=== PATIENT | female | born 1970 | race Caucasian/White ===

== ENCOUNTER → 2018-03-08 | Day surgery (SDC) | payer OTHER ==
[~2018-03-08] VITALS: Ht 162.6 cm; Wt 113.4 kg
--- NOTE | 2018-03-08 12:12 | Operative Report ---
Operative/Inv Procedure Report Surgery Date: 03/08/18 Name of Procedure: 1) Right Knee Arthroscopy with Partial Medial Meniscectomy. 2) Chondroplasty and Microfracture of femoral condyle right knee. 3) Chondroplasty Patella Articular Cartilage. patella articular cartilage. Pre-Operative Diagnosis: 1) Torn Medial Meniscus Right Knee. 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 Post-Operative Diagnosis: Same. Estimated Blood Loss: scant Surgeon/Commercial Energy Auditor: Vikash Farrell MD Anesthesia: laryngeal mask airway Monitors: EKG/BP/oxygen saturation. IV Fluids: Lactated Ringer's. Implants: None. Urine Output: None. Drains: None. Specimens: None. Microbiology: None. Tourniquet: 37 minutes at 350 mmHg. Complications: None known. Condition: Stable. Operative Indication: The patient is a 47-year-old female who started to develop right medial knee pain with snapping and popping but no true catching or locking around early to mid December, without history of injury or change in activity pattern. X-rays were relatively benign. Initial impression was that of early articular cartilage derangement or medial meniscal cartilage derangement medial tibiofemoral compartment. Initial management was conservative with knee bracing and with ice and heat treatment modalities and with physical therapy and home exercises and NSAIDs. The patient's symptoms continued and in fact changed in that she started to develop more true mechanical type symptoms of catching in the knee. She felt that her knee symptoms are worsening over time. She was having increasing difficulty with walking and with inability to terminally extend her knee. We did eventually decide to get an MRI of the knee. She followed up after MRI which showed a complex tear involving the posterior horn and body of the medial meniscus as well as some high-grade chondral fissuring and cartilage loss involving the weightbearing surface of the medial femoral condyle. With ongoing symptoms that were worsening we did discuss the risks and benefits and expected outcomes of continued attempts at nonoperative management which were felt to be unacceptable to the patient. We did alternatively discuss the same with respect to surgical intervention including a right knee arthroscopy and partial medial meniscectomy. We did discuss evaluation of the articular cartilage with possible chondroplasty and possible microfracture of the medial femoral condyle. All of the patient's questions were answered at length. She did wish to move forward with surgery and surgical consent was obtained. Operative/Procedure Note Note: The patient was brought to the operating room and placed on the operating table in supine position. General anesthesia via LMA was induced by the anesthesiologist. A dose of IV antibiotics were given for infection prophylaxis. All bony prominences were well-padded. The contralateral left lower extremity was placed into a calf compression sleeve to hopefully cut down on risk of lower extremity venous pulling and blood clot formation and propagation. A well-padded tourniquet was applied to the proximal portion of the right thigh. A small bump was placed under the right buttocks to help internally rotate the right lower extremity. The right thigh was secured to the OR table with a well-padded thigh romero attachment. The contralateral left lower extremity "well leg" was placed into a well-padded support so that the left lower extremity could be placed into a position of slight flexion and abduction and external rotation through the hip bringing the left lower extremity away from midline. The foot of the bed was dropped and flexed maximally. The OR table was raised and then placed into slight Trendelenburg. The right lower extremity was prepped and draped in the usual sterile fashion. Planned anteromedial and anterolateral arthroscopic portals were marked on the skin with a skin marker. We next created a anterolateral arthroscopic viewing portal and introduced the arthroscope into the knee and diagnostic arthroscopy of the knee ensued. Beginning in the suprapatellar pouch there was generalized synovitis and fine debris. The synovial fluid was slightly cloudy but not suspicious for any type of infection. Evaluation of the patellofemoral cartilage showed the femoral trochlear cartilage to be in relatively good condition. The articular cartilage at the anterior aspects of the medial and lateral femoral condyles was in good condition. The articular cartilage on the undersurface of the patella showed grade 2 and 3 cartilage fissuring involving the distal one half of the patella. The proximal one half the patella articular cartilage was in good condition. The lateral gutter was entered and found to be free of loose bodies and gross debris though there was some synovitis. The lateral tibiofemoral compartment was entered. The lateral meniscus showed mild fraying of the inner margin. There was very mild grade 1 cartilage changes of the lateral tibial plateau. The lateral femoral condyle weightbearing articular cartilage was in excellent condition. The intercondylar notch was unremarkable with a healthy-appearing ACL. The medial gutter was entered and we did see the body of the medial meniscus through a medial meniscal tear that was flipped up into the medial gutter. There was no loose bodies in the gutter but again there was some synovitis. The medial tibiofemoral compartment was entered. There was a complex tear involving the body and posterior horn of the medial meniscus. The medial meniscal tear included most anteriorly/proximally a radial tear that divided the meniscus completely allowing the anterior portion of the body and anterior horn of the medial meniscus to flip out into the medial gutter. The articular cartilage of the medial tibial plateau showed grade 1 cartilage changes. The articular cartilage of the medial femoral condyle showed high- grade cartilage fibrillation and fissuring. This area of cartilage damage ultimately after chondroplasty debridement measured 15 mm AP x 10 mm ML. An anteromedial arthroscopic working portal was created using outside in needle localization technique. A probe was entered into the knee and the medial meniscal tear was probed and found to be unstable. We next used a 4.2 mm full- radius arthroscopic shaver to debride the medial meniscus performing ultimately a subtotal medial meniscectomy. This included debridement of the posterior horn and root attachment site with the shaver. The meniscus here cleaned up quite nicely. There was complete loss of medial meniscus secondary to tearing involving the posterior one half of the body of the medial meniscus which after gentle debridement with the shaver was all the way back to the capsule with no remaining medial meniscus in this area. The more anterior medial meniscus was further trimmed with a shaver. I switched working and viewing arthroscopic portals to help clean up the anterior body and anterior horn of the medial meniscal remnant. The remnant anteriorly was probed and felt to be stable even though there was a free edge posteriorly with the original radial tear involving the posterior one half of the body of the meniscus had been present. It was felt that the meniscus at this location was anterior enough that it was not likely going to cause mechanical symptoms or problems with future recurrent medial meniscal tearing or propagation based upon the location of the remnant of the medial meniscus. I switched back viewing an arthroscopic portals and now evaluated the cartilage loss at the medial femoral condyle. I felt that this was exceptionally high grade fissuring and fibrillation. I did perform a chondroplasty using a ring curette trying to debride back to stable vertical articular cartilage bee. The curette was also used to debride the exposed bone within the defect taking us down to subchondral bone with complete removal of the overlying articular cartilage. This defect of the weightbearing surface of the medial femoral condyle was measured and again was estimated to be 10 x 15 mm M/L x AP respectively. I next performed a microfracture with the microfracture awls introducing about 8 defects with the microfracture awl down through the subchondral plate. All of the holes with that were created with microfracture did show bleeding and expression of blood and fat globules. With the partial medial meniscectomy and microfracture and chondroplasty of the medial compartment not performed we turned our attention towards the patellofemoral compartment where a gentle chondroplasty of the grossly loose fibrillated articular cartilage at the distal one half of the patella was performed gently with a nonaggressive shaver. After this was accomplished the knee was irrigated and then evacuated of as much arthroscopic solution as possible. The arthroscopic instrumentation was removed. The arthroscopic portal wounds were repaired using 3-0 Prolene placed in interrupted simple fashion. The wounds were washed and dried. Adaptic dressing was placed over the portal wounds followed by sterile gauze dressings and abdominal pads which were overwrapped with Kerlix gauze wrap. The extremity was then wrapped from the toes distally to the upper thigh proximally with Jace bandages to hold the dressings in place and to provide gentle postoperative compression to the knee. Once the Jace bandages were in place the tourniquet was deflated at a tourniquet time of 37 minutes. The leg of the OR table was returned to the extended position. Both legs were taken down from their supports and placed in supine extended position. The patient was awakened from general anesthesia and then transferred to the hospital stretcher and brought to the recovery room in stable condition having tolerated the procedure well. Findings: 1) Complex tear body and posterior horn medial meniscus. 2) High-grade cartilage fissuring and fibrillation weightbearing aspect medial femoral condyle measuring 10 x 15 mm M/L x AP respectively. 3) Grade 1 cartilage changes medial tibial plateau. 4) Grade 1 cartilage changes lateral tibial plateau. 5) Grade 2 cartilage changes distal one half patellar articular cartilage. 6) Intact cruciate ligaments. 7) Minor fraying intermargin lateral meniscus. Discharge Disposition: PACU
== END ==
LOC: STS 02:03
DX: M23.221 Derangement of posterior horn of medial meniscus due to old tear or injury, right knee (principal); M22.8X1 Other disorders of patella, right knee; M22.41 Chondromalacia patellae, right knee; E66.9 Obesity, unspecified
CPT/HCPCS: 81025; J0131; J0690; J2250